=== PATIENT | male | born 1975 | race Caucasian/White ===

== ENCOUNTER → 2020-07-09 | Outpatient (CLI) | payer BC ==
[~2020-07-09] MED LIST: NO HOME MEDICATIONS
== END ==
LOC: COL.RAD 13:57
DX: M25.552 Pain in left hip (principal)
CPT/HCPCS: J3301; Q9967

== ENCOUNTER → 2020-10-26 | Outpatient (CLI) | payer BC | LOC: COL.RAD 07:28 | DX: M16.12 Unilateral primary osteoarthritis, left hip (principal); M25.852 Other specified joint disorders, left hip | CPT/HCPCS: J3301; Q9967 ==